=== PATIENT | male | born 1970 | race Caucasian/White ===

== ENCOUNTER → 2017-09-12 | Outpatient (CLI) | payer MEDICAID ==
[~2017-09-12] VITALS: Ht 180.3 cm; Wt 183.7 kg
[~2017-09-12] MED LIST: ADENOSINE 154 MG in GIVE UN-DILUTED 0 ML IV ONE; ADENOSINE 90 MG/30 ML INJ IV ONE
== END | disposition home or self-care (01) ==
LOC: Rad HDHVI 10:41
PROVIDERS: ATTEND Internal Medicine
DX: I25.2 Old myocardial infarction (principal); R94.31 Abnormal electrocardiogram [ECG] [EKG]; R07.89 Other chest pain; R63.8 Other symptoms and signs concerning food and fluid intake
CPT/HCPCS: 78452; 93005; 96374; 96375; A9500; J0153

== ENCOUNTER 2019-06-13 16:37 | Emergency (ER) | payer BC, MEDICAID ==
[~2019-06-13] VITALS: Ht 177.8 cm; Wt 181.4 kg
[2019-06-13 19:33] VITALS: BP 151/83
== END 2019-06-13 19:39 | disposition home or self-care (01) ==
LOC: ER 16:37
DX: M25.551 Pain in right hip (principal); E11.9 Type 2 diabetes mellitus without complications; I10 Essential (primary) hypertension
CPT/HCPCS: 73502; 81002